=== PATIENT | female | born 1995 | race Caucasian/White ===

== ENCOUNTER 2016-07-13 13:45 | Outpatient (CLI) | payer OTHER ==
--- NOTE | 2016-07-13 17:39 | DIAGNOSTIC IMAGING REPORT ---
PROCEDURE: MR LOWER EXT JOINT WO CONT-RT INDICATION: Right foot pain. TECHNIQUE: T1 and STIR sagittal, axial, coronal and coronal-oblique images. COMPARISON: None. FINDINGS: Large talonavicular spurs. 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 Normal ankle joints, sinus tarsi, plantar fascia and Achilles tendon. There is no occult fracture. The tibiofibular, anterior and posterior talofibular, calcaneofibular and deltoid ligaments are intact. The posterior tibial, flexor digitorum longus, flexor hallucis longus, peroneus brevis, peroneus longus and extensor tendons are intact. IMPRESSION: 1. 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
--- NOTE | 2016-07-13 18:12 | DIAGNOSTIC IMAGING REPORT ---
PROCEDURE: MR LOWER EXT JOINT WO CONT-LT INDICATION: Bilateral foot pain, left greater than right. TECHNIQUE: T1 and STIR sagittal, axial, coronal and coronal-oblique images. COMPARISON: None. FINDINGS: Large talonavicular spur. There is fibrocartilaginous coalition of the talus and calcaneus with extensive subchondral edema of the both the talus and the calcaneus. There is no occult fracture The tibiofibular, anterior and posterior talofibular, calcaneofibular and deltoid ligaments intact. Flattened configuration of the peroneus brevis tendon suggestive of a split tear. Peroneus longus, flexor hallucis longus, posterior tibialis, flexor digitorum longus and extensor tendons are intact. Normal sinus tarsi, ankle joint, plantar fascia and Achilles tendon. IMPRESSION: 1. 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 2. Findings suggestive of a peroneus brevis tendon split tear.
== END 2016-07-13 23:00 ==
LOC: MRI SRH 13:45 → CT SRH 14:30 → MRI SRH 23:00
DX: Q66.89 Other specified congenital deformities of feet (principal); M25.775 Osteophyte, left foot; M25.774 Osteophyte, right foot